=== PATIENT | male | born 1960 | race Caucasian/White ===

== ENCOUNTER 2017-10-29 15:55 | Emergency (ER) | payer BC ==
[2017-10-29] MEDS ORDERED: IBUPROFEN 400 MG TAB ONE (16:49)
[2017-10-29] MEDS ORDERED: IBUPROFEN 200 MG TAB PO ONE (16:49)
--- NOTE | 2017-10-29 17:05 | EDPHYS ---
Physician Documentation [facility] Name: Bruce Church Jr Age: 57 yrs Sex: Male : 1960 Arrival Date: 10/29/2017 Time: 15:57 Bed 14 Private MD: ED Physician Canelo So HPI: 10/29 16:29 This 57 yrs old Male presents to ER via Ambulatory with complaints of Foot maría Injury. 16:29 The patient presents with decreased range of motion, pain. The complaints affect the maría right foot. Context: resulted from a heavy object falling, concrete. Onset: The symptoms/episode began/occurred just prior to arrival. Modifying factors: The symptoms are alleviated by elevation of extremity, the symptoms are aggravated by weight bearing, movement, wearing shoes. Associated signs and symptoms: Pertinent positives:. Severity of symptoms: At their worst the symptoms were moderate, in the emergency department the symptoms are unchanged. The patient has not experienced similar symptoms in the past. Historical: - Allergies: 16:16 No Known Allergies; hb - Home Meds: 16:16 Tresiba FlexTouch U-200 200 unit/mL (3 mL) subcutaneous inpn [Active]; Janumet oral hb oral [Active]; Verapamil Oral [Active]; Vytorin 10-80 10-80 mg oral tab [Active]; lansoprazole 30 mg oral cpDR 1 cap once daily [Active]; - PMHx: 16:16 Hypertension; Diabetes - IDDM; hb - PSHx: 16:16 Cholecystectomy; Tonsillectomy; Hernia repair; hb - Immunization history:: Adult Immunizations up to date. - Social history:: Smoking status: Patient/guardian denies using tobacco. - Family history:: not pertinent. ROS: 16:29 Constitutional: Negative for fever, chills, and weight loss, Eyes: Negative for injury, maría pain, redness, and discharge, ENT: Negative for injury, pain, and discharge, Neck: Negative for injury, pain, and swelling, Cardiovascular: Negative for chest pain, palpitations, and edema, Respiratory: Negative for shortness of breath, cough, wheezing, and pleuritic chest pain, Abdomen/GI: Negative for abdominal pain, nausea, vomiting, diarrhea, and constipation, Back: Negative for injury and pain, : Negative for injury, bleeding, discharge, and swelling, Skin: Negative for injury, rash, and discoloration, Neuro: Negative for headache, weakness, numbness, tingling, and seizure, Psych: Negative for depression, anxiety, suicide ideation, homicidal ideation, and hallucinations, Allergy/Immunology: Negative for hives, rash, and allergies, Endocrine: Negative for neck swelling, polydipsia, polyuria, polyphagia, and marked weight changes, Hematologic/Lymphatic: Negative for swollen nodes, abnormal bleeding, and unusual bruising. 16:29 MS/extremity: Positive for decreased range of motion, pain, swelling, tenderness, of the right foot. Exam: 16:29 Constitutional: This is a well developed, well nourished patient who is awake, alert, maría and in no acute distress. Head/Face: Normocephalic, atraumatic. Eyes: Pupils equal round and reactive to light, extra-ocular motions intact. Lids and lashes normal. Conjunctiva and sclera are non-icteric and not injected. Cornea within normal limits. Periorbital areas with no swelling, redness, or edema. ENT: Nares patent. No nasal discharge, no septal abnormalities noted. Tympanic membranes are normal and external auditory canals are clear. Oropharynx with no redness, swelling, or masses, exudates, or evidence of obstruction, uvula midline. Mucous membranes moist. Neck: Trachea midline, no thyromegaly or masses palpated, and no cervical lymphadenopathy. Supple, full range of motion without nuchal rigidity, or vertebral point tenderness. No Meningismus. Chest/axilla: Normal chest wall appearance and motion. Nontender with no deformity. No lesions are appreciated. Cardiovascular: Regular rate and rhythm with a normal S1 and S2. No gallops, murmurs, or rubs. Normal PMI, no JVD. No pulse deficits. Respiratory: Lungs have equal breath sounds bilaterally, clear to auscultation and percussion. No rales, rhonchi or wheezes noted. No increased work of breathing, no retractions or nasal flaring. Abdomen/GI: Soft, non-tender, with normal bowel sounds. No distension or tympany. No guarding or rebound. No evidence of tenderness throughout. Back: No spinal tenderness. No costovertebral tenderness. Full range of motion. Male : Normal genitalia with no discharge or lesions. Skin: Warm, dry with normal turgor. Normal color with no rashes, no lesions, and no evidence of cellulitis. Neuro: Awake and alert, GCS 15, oriented to person, place, time, and situation. Cranial nerves II-XII grossly intact. Motor strength 5/5 in all extremities. Sensory grossly intact. Cerebellar exam normal. Normal gait. Psych: Awake, alert, with orientation to person, place and time. Behavior, mood, and affect are within normal limits. 16:29 Musculoskeletal/extremity: Extremities: noted in the right first toe: decreased ROM, erythema, pain. Vital Signs: 16:13 BP 146 / 100; Pulse 83; Resp 16; Temp 98.1; Pulse Ox 100% on R/A; Weight 81.65 kg; hb Height 5 ft. 6 in. (167.64 cm); Pain 8/10; 17:11 BP 123 / 98; Pulse 86; Resp 18; Pulse Ox 96% on R/A; Pain 5/10; rb1 17:50 BP 131 / 99; Pulse 85; Resp 17; Pulse Ox 96% on R/A; Pain 5/10; rb1 16:13 Body Mass Index 29.05 (81.65 kg, 167.64 cm) hb MDM: 16:20 Patient medically screened. [facility] 16:31 Data reviewed: vital signs, nurses notes, radiologic studies, plain films. [facility] 10/29 16:28 Order name: Foot Right 3 View XRAY [facility] 10/29 17:29 Order name: RAD EDGA 10/29 16:28 Order name: Ice pack; Complete Time: 16:49 [facility] 10/29 16:28 Order name: Post-op shoe; Complete Time: 17:38 [facility] Administered Medications: 16:33 Drug: Motrin 600 mg Route: PO; rb1 17:20 Follow up: Response: No adverse reaction; Pain is decreased rb1 Disposition: 10/29/17 17:04 Discharged to Home. Impression: Contusion of right foot, Other sprain of right foot, Type 1 diabetes mellitus. - Condition is Stable. - Discharge Instructions: Foot Contusion, Type 1 Diabetes Mellitus, Adult, Foot Sprain, Diabetes Mellitus and Food, Foot Contusion, [id number]. - Prescriptions for Tylenol- Codeine #3 300-30 mg Oral Tablet - take 2 tablet by ORAL route every 6 hours As needed; 30 tablet. Motrin IB 200 mg Oral Tablet - take 2 tablet by ORAL route every 6 hours As needed as needed with food; 30 tablet. - Medication Reconciliation Form, Thank You Letter, Antibiotic Education, Prescription Opioid Use form. - Follow up: Private Physician; When: 2 - 3 days; Reason: Recheck today's complaints, Continuance of care, Re-evaluation by your physician. Follow up: Kai Covington MD; When: 2 - 3 days; Reason: Recheck today's complaints, Re-evaluation by your physician. - Problem is new. - Symptoms have improved. Signatures: Dispatcher [employer] EDCanelo Manjarrez MD MD cha Barber, Rebecca, RN RN rb1 Valeria Velarde RN RN
--- NOTE | 2017-10-29 17:05 | ER ---
Nurse's Notes [facility] Name: Bruce Church Jr Age: 57 yrs Sex: Male : 1960 Arrival Date: 10/29/2017 Time: 15:57 Bed 14 Private MD: Diagnosis: Contusion of right foot;Other sprain of right foot;Type 1 diabetes mellitus Presentation: 10/29 16:11 Presenting complaint: Patient states: Dropped 8 lb bag of concrete on right foot at hb 1100 today, c/o right foot pain /10. Transition of care: patient was not received from another setting of care. Onset of symptoms was October 29, 2017 at 11:00. Care prior to arrival: Medication(s) given: Tylenol, at 1200. 16:11 Method Of Arrival: Ambulatory hb 16:11 Acuity: KELLEN 4 hb Triage Assessment: 16:20 Injury Description: Bruise sustained to dorsum of right foot is purple, Pt. dropped an rb1 80 lb. bag of concrete. The bag had gotten wet and hardened before it fell. Historical: - Allergies: 16:16 No Known Allergies; hb - Home Meds: 16:16 Tresiba FlexTouch U-200 200 unit/mL (3 mL) subcutaneous inpn [Active]; Janumet oral hb oral [Active]; Verapamil Oral [Active]; Vytorin 10-80 10-80 mg oral tab [Active]; lansoprazole 30 mg oral cpDR 1 cap once daily [Active]; - PMHx: 16:16 Hypertension; Diabetes - IDDM; hb - PSHx: 16:16 Cholecystectomy; Tonsillectomy; Hernia repair; hb - Immunization history:: Adult Immunizations up to date. - Social history:: Smoking status: Patient/guardian denies using tobacco. - Family history:: not pertinent. Screenin:20 Abuse screen: Denies threats or abuse. Nutritional screening: No deficits noted. rb1 Tuberculosis screening: No symptoms or risk factors identified. Fall Risk None identified. Assessment: 16:20 General: Appears uncomfortable, Behavior is calm, cooperative. Pain: Pain currently is rb1 8 out of 10 on a pain scale. Pain began 1100 this morning. Neuro: Level of Consciousness is awake, alert, obeys commands, Oriented to person, place, time, situation. Cardiovascular: Capillary refill < 3 seconds is brisk in bilateral toes. Respiratory: Airway is patent Respiratory effort is even, unlabored, Respiratory pattern is regular, symmetrical. GI: No signs and/or symptoms were reported involving the gastrointestinal system. : No signs and/or symptoms were reported regarding the genitourinary system. Derm: Bruising that is dark purple, on dorsum of right foot. Musculoskeletal: Range of motion: limited in right first toe. 17:12 Reassessment: Patient appears in no apparent distress at this time. No changes from rb1 previously documented assessment. 17:50 Reassessment: Patient appears in no apparent distress at this time. Patient and/or rb1 family updated on plan of care and expected duration. Pain level reassessed. Patient is alert, oriented x 3, equal unlabored respirations, skin warm/dry/pink. Vital Signs: 16:13 BP 146 / 100; Pulse 83; Resp 16; Temp 98.1; Pulse Ox 100% on R/A; Weight 81.65 kg; hb Height 5 ft. 6 in. (167.64 cm); Pain 8/10; 17:11 BP 123 / 98; Pulse 86; Resp 18; Pulse Ox 96% on R/A; Pain 5/10; rb1 17:50 BP 131 / 99; Pulse 85; Resp 17; Pulse Ox 96% on R/A; Pain 5/10; rb1 16:13 Body Mass Index 29.05 (81.65 kg, 167.64 cm) hb ED Course: 15:57 Patient arrived in ED. as 16:13 Triage completed. hb 16:13 Arm band placed on right wrist. hb 16:20 Canelo So MD is Attending Physician. maría 16:20 Patient has correct armband on for positive identification. Bed in low position. Call rb1 light in reach. Side rails up X 1. Pulse ox on. NIBP on. Ice pack to injury. 16:23 Minnie Freedman, LAYNE is Primary Nurse. rb1 17:03 Kai Covington MD is Referral Physician. maría 17:38 Ortho shoe applied to right foot. Good pedial pulse, cap refill and sensation. ag 17:50 No provider procedures requiring assistance completed. Patient did not have IV access rb1 during this emergency room visit. Administered Medications: 16:33 Drug: Motrin 600 mg Route: PO; rb1 17:20 Follow up: Response: No adverse reaction; Pain is decreased rb1 Outcome: 17:04 Discharge ordered by . maría 17:50 Discharged to home ambulatory, with family. rb1 17:50 Condition: stable 17:50 Discharge instructions given to patient, Instructed on discharge instructions, follow up and referral plans. medication usage, Demonstrated understanding of instructions, follow-up care, medications, Prescriptions given X 2. 17:50 Patient left the ED. rb1 Signatures: Canelo So MD MD cha Martinez, Amelia as Gallardo, Ana ag Barber, Rebecca, LAYNE RN rb1 Valeria Velarde, LAYNE RN Corrections: (The following items were deleted from the chart) 18:15 18:00 Reassessment: Patient appears in no apparent distress at this time. Patient rb1 and/or family updated on plan of care and expected duration. Pain level reassessed. Patient is alert, oriented x 3, equal unlabored respirations, skin warm/dry/pink. rb1 18:15 18:14 No provider procedures requiring assistance completed. rb1 rb1 18:15 18:14 Patient did not have IV access during this emergency room visit. rb1 rb1 18:16 18:00 BP 131 / 99; Pulse 85bpm; Resp 17bpm; Pulse Ox 96% RA; Pain 5/10; rb1 rb1 18:16 18:00 No provider procedures requiring assistance completed. rb1 rb1 18:16 18:00 Patient did not have IV access during this emergency room visit. rb1 rb1 18:19 18:17 Patient left the ED. rb1 rb1
--- NOTE | 2017-10-29 17:28 | RAD REPORT ---
EXAM DESCRIPTION: RAD - Foot Right 3 View - 10/29/2017 4:59 pm CLINICAL HISTORY: Right foot pain status post injury FINDINGS: No fracture or dislocation is seen
== END 2017-10-29 18:17 | disposition home or self-care (01) ==
LOC: ER 15:55
DX: S93.691A Other sprain of right foot, initial encounter (principal); S90.31XA Contusion of right foot, initial encounter; W22.8XXA Striking against or struck by other objects, initial encounter; Y92.9 Unspecified place or not applicable; I10 Essential (primary) hypertension; E11.9 Type 2 diabetes mellitus without complications; Z79.4 Long term (current) use of insulin
CPT/HCPCS: 99284

== ENCOUNTER 2020-07-01 19:13 | Emergency (ER) | payer BC ==
[2020-07-01] MEDS ORDERED: NA CHLORIDE 0.9% 1,000 ML ONE ×2 (21:31→22:46)
[2020-07-01 22:02] LABS: Absolute Lymphocytes (CBC) 1.7 K/uL (0.7-4.9); Basophils % 0.7 % (0-1.3); Hematocrit 44.1 % (39.6-49.0); Lymphocytes % 34.9 % (15.3-44.8); MPV 9.9 fL (7.6-11.3); RBC Red Blood Cell Count 5.34 M/uL (4.33-5.43)
[2020-07-01 22:11] LABS: Potassium 4.2 mmol/L (3.5-5.1)
[2020-07-01 22:36] LABS: Urine Blood NEGATIVE (NEG); Urine Glucose 2+ (NEG); Urine Protein NEGATIVE (NEG)
--- NOTE | 2020-07-01 22:58 | EDPHYS ---
Physician Documentation [facility] Name: Bruce Church Jr Age: 59 yrs Sex: Male : 1960 Arrival Date: 07/01/2020 Time: 19:15 Bed 8 Private MD: LIZANDRO Physician Canelo So HPI: 07/01 20:52 This 59 yrs old Male presents to ER via Ambulatory with complaints of High pm1 Blood Sugar. 20:52 The patient or guardian reports hyperglycemia, that was potentially precipitated by pm1 Unknown. Onset: The symptoms/episode began/occurred today. Associated signs and symptoms: Pertinent positives: Fatigue, Pertinent negatives: diarrhea, nausea, vomiting, Fever, illness, pain. Current symptoms: In the emergency department the patient's symptoms have improved, blood sugars are still elevated but lower. Historical: - Allergies: 19:32 No Known Allergies; ca1 - Home Meds: 19:32 verapamil 200 mg oral CPCT 1 cap once daily [Active]; fenofibrate oral 145 mg oral 1 ca1 tab once daily [Active]; Janumet 50-1,000 mg oral tab 1 tab 2 times per day [Active]; lansoprazole 30 mg Oral cpDR 1 cap once daily [Active]; Tresiba FlexTouch U-200 200 unit/mL (3 mL) subcutaneous inpn [Active]; ezetimibe-simvastatin oral 10-20mg oral 1 tab once daily [Active]; - PMHx: 19:32 Diabetes - IDDM; Hypertension; ca1 - PSHx: 19:32 Cholecystectomy; Tonsillectomy; Hernia repair; ca1 - Immunization history:: Adult Immunizations up to date, Flu vaccine is up to date. - Social history:: Smoking status: Patient denies any tobacco usage or history of. ROS: 20:52 ENT: Negative for injury, pain, and discharge, Neck: Negative for injury, pain, and pm1 swelling, Cardiovascular: Negative for chest pain, palpitations, and edema, Respiratory: Negative for shortness of breath, cough, wheezing, and pleuritic chest pain, Abdomen/GI: Negative for abdominal pain, nausea, vomiting, diarrhea, and constipation, Back: Negative for injury and pain, : Negative for injury, bleeding, discharge, and swelling, MS/Extremity: Negative for injury and deformity, Skin: Negative for injury, rash, and discoloration. 20:52 Neuro: Negative for headache, weakness, numbness, tingling, and seizure. 20:52 Constitutional: Positive for fatigue, Negative for body aches, fever, poor PO intake. Exam: 20:52 Constitutional: This is a well developed, well nourished patient who is awake, alert, pm1 and in no acute distress. Head/Face: Normocephalic, atraumatic. 20:52 Back: No spinal tenderness. No costovertebral tenderness. Full range of motion. Skin: Warm, dry with normal turgor. Normal color with no rashes, no lesions, and no evidence of cellulitis. MS/ Extremity: Pulses equal, no cyanosis. Neurovascular intact. Full, normal range of motion. 20:52 Cardiovascular: Exam negative for acute changes, Rate: normal, Rhythm: regular, Pulses: no pulse deficits are appreciated. 20:52 Respiratory: Exam negative for acute changes, respiratory distress, shortness of breath. 20:52 Neuro: Exam negative for acute changes, Orientation: is normal, Mentation: is normal, Motor: is normal, moves all fours, Gait: is steady, at a normal pace, without difficulty. Vital Signs: 19:27 BP 132 / 95; Pulse 72; Resp 17 S; Temp 97.1(TE); Pulse Ox 100% on R/A; Weight 88.45 kg ca1 (R); Height 5 ft. 6 in. (167.64 cm) (R); Pain 0/10; 19:27 Body Mass Index 31.47 (88.45 kg, 167.64 cm) ca1 MDM: 20:41 Patient medically screened. pm1 22:58 Data reviewed: vital signs. Data interpreted: Pulse oximetry: on room air is 100 %. pm1 Interpretation: normal. Counseling: I had a detailed discussion with the patient and/or guardian regarding: the historical points, exam findings, and any diagnostic results supporting the discharge/admit diagnosis, lab results, the need for outpatient follow up, to return to the emergency department if symptoms worsen or persist or if there are any questions or concerns that arise at home. 07/01 19:46 Order name: Glucose, Ancillary Testing; Complete Time: 20:41 EDMS 07/01 20:32 Order name: Glucose, Ancillary Testing; Complete Time: 20:41 EDMS 07/01 20:51 Order name: CBC with Diff; Complete Time: 22:10 pm1 07/01 20:51 Order name: BMP; Complete Time: 22:23 pm1 07/01 21:54 Order name: Urine Dipstick--Ancillary (enter results); Complete Time: 22:37 ds4 07/01 20:52 Order name: Urine Dipstick-Ancillary (obtain specimen); Complete Time: 21:53 pm1 Administered Medications: 21:30 Drug: NS 0.9% 1000 ml Route: IV; Rate: 1000 ml; Site: left antecubital; ll2 22:58 Not Given (Patient Refused): NS 0.9% 1000 ml IV at 1000 ml once ea Disposition: 07/02 10:58 Co-signature as Attending Physician, Canelo So MD I agree with the assessment and maíra plan of care. Disposition: 07/01/20 22:58 Discharged to Home. Impression: Hyperglycemia, unspecified. - Condition is Stable. - Discharge Instructions: Hyperglycemia, Blood Glucose Monitoring, Adult, Diabetes and Exercise. - Medication Reconciliation Form, Thank You Letter, Antibiotic Education, Prescription Opioid Use form. - Follow up: Emergency Department; When: As needed; Reason: Worsening of condition. Follow up: Private Physician; When: 2 - 3 days; Reason: Recheck today's complaints, Continuance of care, Re-evaluation by your physician. - Problem is new. - Symptoms have improved. Signatures: Dispatcher [employer] EDAL Ernesto Sánchez RN RN sg Anderson, Corey, MD MD cha Marinas, Patrick, DIAGNOSTIC TECHNOLOGIST DIAGNOSTIC TECHNOLOGIST pm1 Marycruz Razo RN RN [facility] Nicole Holley RN RN 2 Alanna Tran RN, ea Corrections: (The following items were deleted from the chart) 07/01 23:12 22:58 07/01/2020 22:58 Discharged to Home. Impression: Hyperglycemia, unspecified. sg Condition is Stable. Discharge Instructions: Hyperglycemia, Blood Glucose Monitoring, Adult, Diabetes and Exercise. Forms are Medication Reconciliation Form, Thank You Letter, Antibiotic Education, Prescription Opioid Use. Follow up: Emergency Department; When: As needed; Reason: Worsening of condition. Follow up: Private Physician; When: 2 - 3 days; Reason: Recheck today's complaints, Continuance of care, Re-evaluation by your physician. Problem is new. Symptoms have improved. pm1
--- NOTE | 2020-07-01 22:58 | ER ---
Nurse's Notes [facility] Name: Bruce Church Jr Age: 59 yrs Sex: Male : 1960 Arrival Date: 07/01/2020 Time: 19:15 Bed 8 Private MD: Diagnosis: Hyperglycemia, unspecified Presentation: 07/01 19:27 Chief complaint: Patient states: BGL 463 at home at 1830. reports feeling tired and ca1 sleepy. Denies any pain. BGL in triage 403. Coronavirus screen: Client denies travel out of the [place] in the last 14 days. At this time, the client does not indicate any symptoms associated with coronavirus-19. Ebola Screen: Patient negative for fever greater than or equal to 101.5 degrees Fahrenheit, and additional compatible Ebola Virus Disease symptoms Patient denies exposure to infectious person. Patient denies travel to an Ebola-affected area in the 21 days before illness onset. No symptoms or risks identified at this time. Initial Sepsis Screen: Does the patient meet any 2 criteria? No. Patient's initial sepsis screen is negative. Does the patient have a suspected source of infection? No. Patient's initial sepsis screen is negative. Risk Assessment: Do you want to hurt yourself or someone else? Patient reports no desire to harm self or others. Onset of symptoms was July 01, 2020 at 18:30. 19:27 Method Of Arrival: Ambulatory ca1 19:27 Acuity: KELLEN 3 ca1 Historical: - Allergies: 19:32 No Known Allergies; ca1 - Home Meds: 19:32 verapamil 200 mg oral CPCT 1 cap once daily [Active]; fenofibrate oral 145 mg oral 1 ca1 tab once daily [Active]; Janumet 50-1,000 mg oral tab 1 tab 2 times per day [Active]; lansoprazole 30 mg Oral cpDR 1 cap once daily [Active]; Tresiba FlexTouch U-200 200 unit/mL (3 mL) subcutaneous inpn [Active]; ezetimibe-simvastatin oral 10-20mg oral 1 tab once daily [Active]; - PMHx: 19:32 Diabetes - IDDM; Hypertension; ca1 - PSHx: 19:32 Cholecystectomy; Tonsillectomy; Hernia repair; ca1 - Immunization history:: Adult Immunizations up to date, Flu vaccine is up to date. - Social history:: Smoking status: Patient denies any tobacco usage or history of. Assessment: 20:20 Reassessment: BGL 377. ca1 20:45 General: Appears in no apparent distress. Behavior is calm, cooperative, appropriate ll2 for age. Pain: Denies pain. Neuro: Level of Consciousness is awake, alert, obeys commands, Oriented to person, place, time, situation. Cardiovascular: Patient's skin is warm and dry. Respiratory: Airway is patent Respiratory effort is even, unlabored, Respiratory pattern is regular, symmetrical. GI: No signs and/or symptoms were reported involving the gastrointestinal system. : Reports urinary frequency. EENT: No signs and/or symptoms were reported regarding the EENT system. Derm: Skin is intact, is healthy with good turgor, Skin is dry, Skin is pink, warm \T\ dry. Musculoskeletal: Circulation, motion, and sensation intact. Range of motion: intact in all extremities. Vital Signs: 19:27 BP 132 / 95; Pulse 72; Resp 17 S; Temp 97.1(TE); Pulse Ox 100% on R/A; Weight 88.45 kg ca1 (R); Height 5 ft. 6 in. (167.64 cm) (R); Pain 0/10; 19:27 Body Mass Index 31.47 (88.45 kg, 167.64 cm) ca1 ED Course: 19:15 Patient arrived in ED. cl3 19:30 Triage completed. ca1 19:32 Arm band placed on right wrist. ca1 20:41 Richy Song NP is PHCP. pm1 20:41 Canelo So MD is Attending Physician. pm1 20:54 Nicole Holley RN is Primary Nurse. ll2 Administered Medications: 21:30 Drug: NS 0.9% 1000 ml Route: IV; Rate: 1000 ml; Site: left antecubital; ll2 22:58 Not Given (Patient Refused): NS 0.9% 1000 ml IV at 1000 ml once ea Outcome: 22:58 Discharge ordered by . pm1 23:12 Patient left the ED. sg Signatures: Ernesto Sánchez RN RN sg Richy Song NP TALENT RECRUITER pm1 Marycruz Razo RN RN ca1 Caitlyn Pack cl3 Nicole Holley RN RN ll2 Tran, Alanna RN ea
[2020-07-02 05:46] VITALS: BP 132/95; TEMP 97.1; O2SAT 100
== END 2020-07-01 23:12 | disposition home or self-care (01) ==
LOC: ER 19:13
DX: E11.65 Type 2 diabetes mellitus with hyperglycemia (principal); I10 Essential (primary) hypertension
CPT/HCPCS: 85025; 80048; 36415; 82947 ×3; 81003; 99282; J7030 ×2

== ENCOUNTER 2024-10-06 22:34 | Emergency (ER) | payer BC ==
--- OUTSIDE RECORDS SUMMARY | 2024-10-06 22:37 | XMS REPORT | Continuity of Care Document ---
Author Name Unknown Address [address] [place] [address] [address] [facility] [address] [facility] [address] [place] [address] Care Team Providers Care Communications Project Lead Name Role Phone DENNYS DEL ROSARIO Attending Clinician GIANNA Bolivar Attending Clinician JAMAAL Cadena Attending Clinician Unavailable MIRELA QUIROZ Attending Clinician Unavailable CESAR HOLMAN Attending Clinician VERA Scott Attending Clinician Un available Encounters Start Date/Time End Date/Time Encounter Type Admission Type Attending Clinicians Care Facility Care Department Encounter ID Source 2023-10-11 13:07:00 2023-10-11 13:07:00 Outpatient UR DENNYS DEL ROSARIO [facility] [id number] [facility] 2019-06-26 08:18:00 2019-06-26 08:18:00 Outpatient GIANNA STAFFORD [facility] [id number] [facility] 2017-05-14 13:25:00 2017-05-14 14:55:00 Emergency ER JAMAAL MORALES [facility] [id number] [facility] 2014-05-30 03:02:00 2014-05-30 06:48:00 Emergency ER MIRELA QUIROZ [facility] [id number] [facility] 2010-08-31 11:44:00 2010-08-31 17:15:00 Emergency ER CESAR HOLMAN [facility] [id number] [facility] 2007-12-17 03:29:00 2007-12-17 07:40:00 Emergency ER VERA PRASAD [facility] [id number] [facility] 2007-11-18 02:52:00 2007-11-18 04:57:00 Emergency ER VERA PRASAD [facility] [id number] [facility]
[2024-10-06 23:18] LABS: Absolute Eosinophils 0.1 K/uL (0-0.5); Absolute Lymphocytes (CBC) 1.4 K/uL (0.7-4.9); Absolute Monocytes 0.4 K/uL (0.1-1.3); Absolute Neutrophil 2.1 K/uL (1.8-8.0); Basophils % 0.5 % (0-1.3); Eosinophils % 2.8 % (0-4.4); Hematocrit 41.7 % (39.6-49.0); Hemoglobin 14.6 g/dL (13.6-17.9); MCH 28.9 pg (27.0-35.0); MCV 82.6 fL (80-100); MPV 9.7 fL (7.6-11.3); Monocytes % 9.4 % (3.3-12.3); Neutrophils % 52.3 % (41.7-73.7); Nucleated Red Blood Cells % 0.2 % (0-0); Platelets 85 thou/uL (152-406); RBC Red Blood Cell Count 5.05 M/uL (4.33-5.43); Red Cell Distribution Width 14.9 % (12.1-15.2)
[2024-10-07 00:13] LABS: ALT/SGPT 33 U/L (16-61); AST/SGOT 27 U/L (15-37); Albumin 3.4 g/dL (3.4-5.0); Albumin/Globulin Ratio 1.1 (1.1-1.8); Alkaline Phosphatase 155 U/L (45-117); Anion Gap 12.6 mEq/L (5.0-15.0); BUN Blood Urea Nitrogen 29 mg/dL (7-18); Bicarbonate 23 mEq/L (21-32); Bilirubin Direct < 0.2 mg/dL (0-0.2); Bilirubin Indirect, Calculated 0.3 mg/dL (0.2-0.8); Bilirubin Total 0.5 mg/dL (0.2-1.0); Globulin 3.1 g/dL (2.3-3.5); Glomerular Filtration Rate 46 ml/min (=/>90); Magnesium 1.9 mg/dL (1.6-2.4); NT PRO-BNP 16 pg/mL (<125); Potassium 4.6 mEq/L (3.5-5.1); Protein, Total 6.5 g/dL (6.4-8.2); Sodium Level 132 mEq/L (136-145); Troponin High Sensitivity 4.1 pg/mL (<58.9)
[2024-10-07 00:14] LABS: Glucose Level 529 mg/dL (74-106)
[2024-10-07 00:17] LABS: Blood Morphology Comment NOT SEEN (NOT SEEN); Platelet Estimate DECR; White Blood Cell Scan OK (OK)
[2024-10-07] MEDS ORDERED: INSULIN REGULAR (HUMAN) 100 UNIT/ML ONE (00:22)
[2024-10-07] MEDS ORDERED: NA CHLORIDE 0.9% 1,000 ML ONE (00:23)
--- NOTE | 2024-10-07 01:02 | ER ---
Nurse's Notes [facility] Name: Bruce Church Jr Age: 64 yrs Sex: Male : 1960 Arrival Date: 10/06/2024 Time: 22:34 Bed 13 Private MD: Diagnosis: Hyperglycemia, unspecified Presentation: 10/06 22:38 Chief complaint: Patient states: I CHECKED MY SUGAR LEVEL AT HOME AND IT WAS ABOVE 500. ha1 ASYMPTOMATIC. 22:38 Coronavirus screen: Client denies travel out of the [place] in the last 14 days. Ebola ha1 Screen: No symptoms or risks identified at this time. Initial Sepsis Screen: Does the patient meet any 2 criteria? No. Patient's initial sepsis screen is negative. Does the patient have a suspected source of infection? No. Patient's initial sepsis screen is negative. Risk Assessment: Do you want to hurt yourself or someone else? Patient reports no desire to harm self or others. Onset of symptoms was October 06, 2024. 22:38 Method Of Arrival: Ambulatory ha1 22:38 Acuity: KELLEN 3 ha1 Triage Assessment: 22:48 General: Appears comfortable, Behavior is calm, cooperative. Pain: Denies pain. Neuro: ha1 Level of Consciousness is awake, alert, obeys commands, Oriented to person, place, time, situation. Cardiovascular: Capillary refill < 3 seconds Patient's skin is warm and dry. Respiratory: Airway is patent Respiratory effort is even, unlabored, Respiratory pattern is regular, symmetrical. GI: No signs and/or symptoms were reported involving the gastrointestinal system. : No signs and/or symptoms were reported regarding the genitourinary system. Derm: Skin is pink, warm \T\ dry. Musculoskeletal: Circulation, motion, and sensation intact. Range of motion: intact in all extremities. Historical: - Allergies: 22:48 Morphine; ha1 - PMHx: 22:48 Diabetes - IDDM; Hypertension; ha1 - Immunization history:: Adult Immunizations up to date. - Infectious Disease History:: Denies. - Social history:: Smoking status: Patient denies any tobacco usage or history of. Screenin:00 [facility] ED Fall Risk Assessment (Adult) History of falling in the last 3 months, ha1 including since admission No falls in past 3 months (0 pts) Confusion or Disorientation No (0 pts) Intoxicated or Sedated No (0 pts) Impaired Gait No (0 pts) Mobility Assist Device Used No (0 pt) Altered Elimination No (0 pt) Score/Fall Risk Level 0 - 2 = Low Risk Oriented to surroundings, Maintained a safe environment, Educated pt \T\ family on fall prevention, incl call for assistance when getting out of bed, Hourly rounding (assess needs \T\ fall precautionary measures) done. Abuse screen: Denies threats or abuse. Denies injuries from another. Nutritional screening: No deficits noted. Tuberculosis screening: No symptoms or risk factors identified. Assessment: 22:38 Reassessment: see triage assessment. [facility] 23:35 Reassessment: Patient and/or family updated on plan of care and expected duration. Pain ha1 level reassessed. Patient is alert, oriented x 3, equal unlabored respirations, skin warm/dry/pink. Patient denies pain at this time. 10/07 00:30 Reassessment: Patient and/or family updated on plan of care and expected duration. Pain ha1 level reassessed. Patient is alert, oriented x 3, equal unlabored respirations, skin warm/dry/pink. 01:26 Reassessment: Patient and/or family updated on plan of care and expected duration. Pain ha1 level reassessed. Patient is alert, oriented x 3, equal unlabored respirations, skin warm/dry/pink. Patient denies pain at this time. Vital Signs: 10/06 22:38 BP 143 / 84; Pulse 87; Resp 17 S; Temp 97.2(T); Pulse Ox 97% on R/A; Weight 82.55 kg; 1 Height 5 ft. 7 in. ; 23:35 BP 119 / 79; Pulse 88; Resp 17 S; Pulse Ox 98% on R/A; 1 10/07 00:30 BP 121 / 79; Pulse 85; Resp 17 S; Pulse Ox 98% on R/A; 1 01:20 BP 127 / 74; Pulse 71; Resp 16 S; Temp 97.2(T); Pulse Ox 98% on R/A; 1 10/06 22:38 Body Mass Index 28.50 (82.55 kg, 170.18 cm) [facility] ED Course: 10/06 22:36 Patient arrived in ED. [email or web address] 22:38 Juan Alberto Johnson MD is Attending Physician. sp3 22:38 Patient has correct armband on for positive identification. Placed in gown. Bed in low ha1 position. Call light in reach. Side rails up X 1. 22:38 Provided Education on: GLUCOSE MONITORING . ha1 22:38 Arm band placed on right wrist. ha1 22:45 Alissa Mariee, RN is Primary Nurse. ha1 22:48 Triage completed. ha1 22:55 Inserted saline lock: 20 gauge in left antecubital area, using aseptic technique. Blood ha1 collected. Flushed with 10 mL NS. 22:58 EKG done, by ED staff. sa1 22:59 Basic Metabolic Panel Sent. sa1 :59 CBC with Diff Sent. sa1 :59 LFT's Sent. sa1 :59 Magnesium Sent. sa1 :59 NT PRO-BNP Sent. sa1 :59 Troponin HS Sent. sa1 10/07 00:14 Notified ED physician of a critical lab result(s). Glucose 529. vc1 01:29 No provider procedures requiring assistance completed. IV discontinued, intact, ha1 bleeding controlled, No redness/swelling at site. Pressure dressing applied. Administered Medications: 00:29 Drug: Insulin Regular Human IVP 10 units IVP once {Co-Signature: vc1 (Payton Romeo RN).} Route: IVP; Site: left antecubital; 01:10 Follow up: Response: No adverse reaction; Blood sugar is lowered ha1 00:30 Drug: NS 0.9% IV 1000 ml IV at 1 bolus Per protocol; to be given as a bolus over 60 ha1 minutes Route: IV; Rate: 1 bolus; Site: left antecubital; 01:30 Follow up: Response: No adverse reaction; IV Status: Completed infusion; IV Intake: ha1 1000ml Medication: :29 VIS not applicable for this client. ha1 Intake: :30 IV: 1000ml; Total: 1000ml. ha1 Outcome: : Discharge ordered by . sp3 :29 Discharged to home ambulatory, with family, ha1 :29 Condition: stable :29 Discharge instructions given to patient, family, Instructed on discharge instructions, follow up and referral plans. Demonstrated understanding of instructions, follow-up care, 01:31 Patient left the ED. ha1 Signatures: Juan Alberto Johnson MD MD sp3 Yesenia Cortes [email or web address] Payton Romeo RN RN vc1 Alissa Mariee RN RN ha1 Sultan ladarius [email or web address] Payton Romeo RN vc1 Corrections: (The following items were deleted from the chart) 10/06 22:49 22:48 Allergies: No Known Allergies; 1 ha1
--- NOTE | 2024-10-07 01:02 | EDPHYS ---
Physician Documentation [facility] Name: Bruce Church Jr Age: 64 yrs Sex: Male : 1960 Arrival Date: 10/06/2024 Time: 22:34 Bed 13 Private MD: ED Physician Juan Alberto Johnson HPI: 10/06 23:05 This 64 yrs old Male presents to ER via Ambulatory with complaints of High Blood Sugar. sp3 23:05 64-year-old male with history of diabetes and hypertension presents with hyperglycemia sp3 episode. Patient states he has been having off-and-on episodes of this for the last several weeks. This morning was 215 but at home read over 400. He is not happy with his current medical care he is on [place] only. He denies any other symptoms including polyuria, polydipsia, fever, chest pain, shortness of breath, abdominal pain, vomiting, diarrhea, syncope, near syncope, URI symptoms, known sick contacts, travel history, or any other signs or symptoms on ROS at this time. No change in his diet reported.. Historical: - Allergies: 22:48 Morphine; ha1 - PMHx: 22:48 Diabetes - IDDM; Hypertension; ha1 - Immunization history:: Adult Immunizations up to date. - Infectious Disease History:: Denies. - Social history:: Smoking status: Patient denies any tobacco usage or history of. ROS: 23:06 Constitutional: Negative for fever, chills, and weight loss, Eyes: Negative for injury, sp3 pain, redness, and discharge, ENT: Negative for injury, pain, and discharge, Neck: Negative for injury, pain, and swelling, Cardiovascular: Negative for chest pain, palpitations, and edema, Respiratory: Negative for shortness of breath, cough, wheezing, and pleuritic chest pain, Abdomen/GI: Negative for abdominal pain, nausea, vomiting, diarrhea, and constipation, Back: Negative for injury and pain, : Negative for injury, bleeding, discharge, and swelling, MS/Extremity: Negative for injury and deformity, Skin: Negative for injury, rash, and discoloration, Neuro: Negative for headache, weakness, numbness, tingling, and seizure, Psych: Negative for depression, anxiety, suicide ideation, homicidal ideation, and hallucinations, Allergy/Immunology: Negative for hives, rash, and allergies, Hematologic/Lymphatic: Negative for swollen nodes, abnormal bleeding, and unusual bruising, 23:06 All other systems are negative, Exam: 23:06 Constitutional: This is a well developed, well nourished patient who is awake, alert, sp3 and in no acute distress. Head/Face: Normocephalic, atraumatic. Eyes: Pupils equal round and reactive to light, extra-ocular motions intact. Lids and lashes normal. Conjunctiva and sclera are non-icteric and not injected. Cornea within normal limits. Periorbital areas with no swelling, redness, or edema. ENT: Nares patent. No nasal discharge, no septal abnormalities noted. External auditory canals are clear. Oropharynx with no redness, swelling, or masses, exudates, or evidence of obstruction, uvula midline. Mucous membranes moist. Neck: Trachea midline, no thyromegaly or masses palpated, and no cervical lymphadenopathy. Supple, full range of motion without nuchal rigidity, or vertebral point tenderness. No Meningismus. Chest/axilla: Normal chest wall appearance and motion. Nontender with no deformity. No lesions are appreciated. Cardiovascular: Regular rate and rhythm with a normal S1 and S2. No gallops, murmurs, or rubs. Normal PMI, no JVD. No pulse deficits. Respiratory: Lungs have equal breath sounds bilaterally, clear to auscultation and percussion. No rales, rhonchi or wheezes noted. No increased work of breathing, no retractions or nasal flaring. Abdomen/GI: Soft, non-tender, with normal bowel sounds. No distension or tympany. No guarding or rebound. No evidence of tenderness throughout. Back: No spinal tenderness. No costovertebral tenderness. Full range of motion. Skin: Warm, dry with normal turgor. Normal color with no rashes, no lesions, and no evidence of cellulitis. MS/ Extremity: Pulses equal, no cyanosis. Neurovascular intact. Full, normal range of motion. Neuro: Awake and alert, GCS 15, oriented to person, place, time, and situation. Cranial nerves II-XII grossly intact. Motor strength 5/5 in all extremities. Sensory grossly intact. Cerebellar exam normal. Normal gait. Psych: Awake, alert, with orientation to person, place and time. Behavior, mood, and affect are within normal limits. 23:06 ECG was reviewed by the Attending Physician. EKG demonstrates normal sinus rhythm at 83 bpm with right bundle branch block, QTc [address]/T changes without evidence of acute ischemia. Vital Signs: 22:38 BP 143 / 84; Pulse 87; Resp 17 S; Temp 97.2(T); Pulse Ox 97% on R/A; Weight 82.55 kg; ha1 Height 5 ft. 7 in. ; 23:35 BP 119 / 79; Pulse 88; Resp 17 S; Pulse Ox 98% on R/A; ha1 10/07 00:30 BP 121 / 79; Pulse 85; Resp 17 S; Pulse Ox 98% on R/A; ha1 01:20 BP 127 / 74; Pulse 71; Resp 16 S; Temp 97.2(T); Pulse Ox 98% on R/A; ha1 10/06 22:38 Body Mass Index 28.50 (82.55 kg, 170.18 cm) [facility] MDM: 10/06 22:38 Medical Screening Exam initiated sp3 10/07 01:00 Data reviewed: vital signs, nurses notes, lab test result(s). ED course: Blood sugar sp3 now down to 384 after insulin and IV fluids. Differential diagnosis hyperglycemia versus DKA versus other electrolyte disturbance. Patient safe to go home per diverged and follow back up with his PCP for any insulin adjustments. Vital signs stable on discharge.. 03 22:42 Order name: Basic Metabolic Panel; Complete Time: 00:18 sp3 10/06 22:42 Order name: CBC with Diff; Complete Time: 00:18 sp3 10/06 22:42 Order name: LFT's; Complete Time: 00:18 sp3 10/06 22:42 Order name: Magnesium; Complete Time: 00:18 sp3 10/06 22:42 Order name: NT PRO-BNP; Complete Time: 00:18 sp3 10/06 22:42 Order name: Troponin HS; Complete Time: 00:18 sp3 10/06 22:55 Order name: Glucose, Ancillary Testing; Complete Time: 00:18 EDMS 10/06 23:30 Order name: CBC Smear Scan; Complete Time: 00:18 EDMS 10/07 01:12 Order name: Glucose, Ancillary Testing; Complete Time: 01:13 EDMS 10/06 22:42 Order name: Cardiac monitoring; Complete Time: 23:00 sp3 10/06 22:42 Order name: EKG - Nurse/Tech; Complete Time: 22:59 sp3 10/06 22:42 Order name: IV Saline Lock; Complete Time: 22:59 sp3 10/06 22:42 Order name: Labs collected and sent; Complete Time: 22:59 sp3 10/06 22:42 Order name: O2 Sat Monitoring; Complete Time: 22:59 sp3 Administered Medications: 00:29 Drug: Insulin Regular Human IVP 10 units IVP once {Co-Signature: vc1 (Payton Romeo ha1 RN).} Route: IVP; Site: left antecubital; 01:10 Follow up: Response: No adverse reaction; Blood sugar is lowered ha1 00:30 Drug: NS 0.9% IV 1000 ml IV at 1 bolus Per protocol; to be given as a bolus over 60 ha1 minutes Route: IV; Rate: 1 bolus; Site: left antecubital; 01:30 Follow up: Response: No adverse reaction; IV Status: Completed infusion; IV Intake: ha1 1000ml Disposition Summary: 10/07/24 01:01 Discharge Ordered Notes: Location: Home sp3 Condition: Stable sp3 Diagnosis - Hyperglycemia, unspecified sp3 Followup: sp3 - With: Private Physician - When: Upon discharge from the Emergency Department - Reason: Recheck today's complaints, Continuance of care Discharge Instructions: - Discharge Summary Sheet sp3 - Hyperglycemia sp3 Forms: - Medication Reconciliation Form sp3 - Antibiotic Education sp3 - Prescription Opioid Use sp3 - Patient Portal Instructions sp3 - Leadership Thank You Letter sp3 Signatures: Dispatcher [employer] Juan Alberto Redmond MD MD sp3 Alissa Mariee RN RN ha1 Payton Romeo RN vc1 Corrections: (The following items were deleted from the chart) 10/06 22:49 22:48 Allergies: No Known Allergies; ha1 ha1
[2024-10-07 01:34] VITALS: TEMP 97.2
[2024-10-07 01:36] VITALS: O2SAT 98
[2024-10-07 01:40] VITALS: BP 127/74
--- NOTE | 2024-10-08 12:07 | EKG ---
Test Date: 2024-10-06 Test Time: 22:56:22 Founder And President: MEASUREMENT RESULTS: Intervals: Rate: 83 WI: 176 QRSD: 126 QT: 376 QTc: 441 Dixon: P: 41 WI: 176 QRS: 28 T: 15 INTERPRETIVE STATEMENTS: Normal sinus rhythm Right bundle branch block Abnormal ECG No previous ECG available for comparison Electronically Signed On 10-08-24 12:03:39 [employer] WORK[employer] by Bo Colin
== END 2024-10-07 01:31 | disposition home or self-care (01) ==
LOC: ER 22:34
DX: E11.65 Type 2 diabetes mellitus with hyperglycemia (principal); I10 Essential (primary) hypertension
CPT/HCPCS: 96361; 93005; 85025; 80048; 36415; 83735; 82947 ×2; 80076; 84484; 83880; 96374; 99284; J1815; J7030